=== PATIENT | female | born 1975 | race Caucasian/White ===

== ENCOUNTER 2016-12-04 03:30 | Emergency (ER) | payer BC ==
[2016-12-04] MEDS ORDERED: ASPIRIN 81 MG CHEW TAB ONE (03:51)
[2016-12-04] MEDS ORDERED: DUONEB INH ONE (04:27)
[2016-12-04] MEDS ORDERED: KETOROLAC 30 MG/ML VIAL ONE (05:40)
== END 2016-12-04 06:54 | disposition home or self-care (01) ==
LOC: ER 03:30
DX: R07.9 Chest pain, unspecified (principal); J20.9 Acute bronchitis, unspecified; F17.200 Nicotine dependence, unspecified, uncomplicated
CPT/HCPCS: 36415; 71010; 80053; 82550; 83735; 84484; 85025; 85610; 85730; 93005; 94640; 96374